=== PATIENT | female | born 1990 | race African-American/Black ===

== ENCOUNTER 2018-11-27 08:43 | Emergency (ER) | payer OTHER ==
[2018-11-27] MEDS ORDERED: DEXAMETHASONE SOD PHOS INJ 10 MG/1 ML VIAL IM ONE (09:33)
--- NOTE | 2018-11-27 09:41 | ER Document Report ---
ED General - General Chief Complaint: Difficulty Swallowing Stated Complaint: POSSIBLE ALLERGIC REACTION Time Seen by Provider: 11/27/18 09:24 Primary Care Provider: STEPHANIE PARSONS MD [EMERITUS] - Follow up as needed TRAVEL OUTSIDE OF THE [place] IN LAST 30 DAYS: No - HPI Notes: 27-year-old female with no significant past medical history aside from hypothyroidism who presents emergency department complaining of a swollen small movable lump underneath her chin that showed up last night. Patient states that she feels that every time she swallows. Patient states that she is otherwise able to eat and drink without difficulty. She is urinating normally and having normal bowel movements. She has not had any recent illness. Denies drug allergies. No other surgical history to her head or neck. Denies any headache, fever, head injury, neck pain, changes in vision/speech/mentation/hearing, URI, sore throat, chest pain, palpitations, syncope, cough, shortness of breath, wheeze, dyspnea, abdominal pain, nausea/vomiting/diarrhea, urinary retention, dysuria, hematuria, or rash. - Related Data Allergies/Adverse Reactions: No Known Allergies Allergy (Verified 11/27/18 08:44) Past Medical History - Social History Smoking Status: Never Smoker Frequency of alcohol use: None Drug Abuse: None Family History: Reviewed & Not Pertinent Patient has suicidal ideation: No Patient has homicidal ideation: No - Past Medical History Cardiac Medical History: Denies: Hx Coronary Artery Disease, Hx Hypercholesterolemia, Hx Hypertension Pulmonary Medical History: Denies: Hx Asthma Neurological Medical History: Denies: Hx Cerebrovascular Accident Endocrine Medical History: Denies: Hx Diabetes Mellitus Type 2 Renal/ Medical History: Denies: Hx Peritoneal Dialysis Malignancy Medical History: Denies: Hx Breast Cancer Skin Medical History: Denies Hx MRSA Past Surgical History: Reports: Hx Abdominal Surgery - gastric sleeve 2017 - Immunizations Immunizations up to date: Yes Hx Diphtheria, Pertussis, Tetanus Vaccination: Yes Review of Systems - Review of Systems -: Yes All other systems reviewed and negative Physical Exam - Vital signs Vitals: Temp Pulse Resp BP Pulse Ox 99.2 F 82 16 155/104 H 100 11/27/18 08:48 11/27/18 08:48 11/27/18 08:48 11/27/18 08:48 11/27/18 08:48 - Notes Notes: PHYSICAL EXAMINATION: GENERAL: Well-appearing, well-nourished and in no acute distress. A&Ox4. Answers questions appropriately. Moves comfortably w/o notable distress. Pt is speaking in full, complete, sentences without any signs of discomfort or change in her voice. HEAD: Atraumatic, normocephalic. EYES: Pupils equal round and reactive to light, extraocular movements intact, sclera anicteric, conjunctiva are normal. ENT: EAC clear b/l. TM's intact b/l without erythema, fluid, or perforation. Nares patent and with clear discharge. oropharynx w/o significant erythema without exudates. No tonsilar hypertrophy without erythema or exudate. No palatine shift. Uvula midline. No tongue protrusion. No drooling, hoarseness, or airway compromise. Moist mucous membranes. No sinus tenderness. NECK: Normal range of motion. No rigidity/meningismus. + single, mobile, tender submental lymphadenopathy (correlates with pt's complaint) LUNGS: Breath sounds clear to auscultation bilaterally and equal. No wheezes rales or rhonchi. No retractions HEART: Regular rate and rhythm without murmurs, rubs, gallops. ABDOMEN: Soft, nontender, nondistended abdomen. No guarding, no rebound. No masses appreciated. Normal bowel sounds present. No CVA tenderness bilaterally. No hepatosplenomegaly. NEUROLOGICAL: Normal speech, normal gait. Normal sensory, motor exams PSYCH: Normal mood, normal affect. SKIN: Warm, Dry, normal turgor, no rashes or lesions noted. Course - Re-evaluation Re-evalutation: 11/27/18 09:42 Patient is an afebrile, well-hydrated, 27-year-old female who presents to the emergency department with lymphadenitis of her submental area. Vitals are accep table without any significant tachycardia, tachypnea, or hypoxia. PE is otherwise unremarkable. Patient is nontoxic-appearing and is tolerating p.o. without difficulty. Patient was given Decadron IM. No labs or imaging warranted at this time. I am able to reproduce the patient's symptoms by pushing on the lymphadenitis. Low suspicion for any meningitis, sepsis, peritonsillar/pharyngeal abscess, respiratory compromise, Ke's, or other emergent systemic condition at this time. Patient is aware this condition can change from initial presentation and she needs to monitor symptoms closely. Conservative measures otherwise for symptoms. Recheck with your PCM/ENT in 2-3 days. Return to the ED with any worsening/concerning symptoms otherwise as reviewed in discharge. Patient is in agreement. - Vital Signs Vital signs: Temp Pulse Resp BP Pulse Ox 99.2 F 82 16 155/104 H 100 11/27/18 08:48 11/27/18 08:48 11/27/18 08:48 11/27/18 08:48 11/27/18 08:48 Discharge - Discharge Clinical Impression: Lymphadenitis Condition: Stable Disposition: HOME, SELF-CARE Instructions: Lymphadenopathy ([facility]) Additional Instructions: Rest, Ice/cool compress vs heat/warm compress Tylenol/ibuprofen as needed F/u with your PCP in 2-3 days for a recheck Consider consult(s) with ENT for ongoing/worsening symptoms Return to the ED with any worsening symptoms and/or development of fever, headache, chest pain, palpitations, syncope, shortness of breath, trouble breathing, abdominal pain, n/v/d, muscle weakness/paralysis, numbness/tingling, swelling, redness, or other worsening symptoms that are concerning to you. Forms: Elevated Blood Pressure Referrals: STEPHANIE PARSONS MD [EMERITUS] - Follow up as needed DIGNA ALEXANDER DO [ASSOCIATE] - Follow up as needed
[2018-11-27 10:00] VITALS: BP 131/91
== END 2018-11-27 10:05 | disposition home or self-care (01) ==
LOC: ER 08:43
DX: I88.9 Nonspecific lymphadenitis, unspecified (principal); R13.10 Dysphagia, unspecified
CPT/HCPCS: 99283; 96372; J1100